=== PATIENT | female | born 1960 | race African-American/Black ===

== ENCOUNTER 2018-04-27 14:06 | Inpatient (IN) | payer MEDICAID ==
[~2018-04-27] VITALS: Ht 170.2 cm; Wt 115.7 kg
[2018-04-27] MEDS ORDERED: KETOROLAC 30MG/ML VIAL IV STA (14:21)
[2018-04-27] MEDS ORDERED: SODIUM CHLORIDE 0.9% 1,000 ML IV ONE (14:21)
[2018-04-27] MEDS ORDERED: METHYLPREDNISOLONE SOD SUCC 125 MG/2 ML VIAL IV ONE (14:30)
[2018-04-27] MEDS ORDERED: CLINDAMYCIN 600 MG in DEXTROSE 5% WATER 50 ML IV ONE (14:30)
[2018-04-27 15:22] LABS: CHLORIDE 107 mEq/L (98-107)
[2018-04-27 17:15] LABS: HEMATOCRIT. 39.5 % (36.0-48.0); HEMOGLOBIN. 13.2 g/dL (12.0-16.0); MEAN CORPUSCULAR HEMOGLOBIN 29.6 pg (28.0-32.0); MEAN CORPUSCULAR VOLUME 88.6 fL (81.0-99.0); MEAN PLATELET VOLUME 9.6 fl (7.4-10.4); PLATELET 249 x1000/uL (130-400); RED BLOOD CELL COUNT 4.46 mill/uL (4.2-5.4); RED CELL DISTRIBUTION WIDTH 13.5 % (11.6-14.6)
[2018-04-27] MEDS ORDERED: FUROSEMIDE 20MG/2ML VIAL IVP ONE (18:00)
[2018-04-27] MEDS ORDERED: IPRATROPIUM/ALBUTEROL 0.5-3(2.5)MG/3ML NEB HHN PRN (18:45)
[2018-04-27] MEDS ORDERED: LACTULOSE 20G/30ML UDC PO PRN (18:45)
[2018-04-27 19:35] LABS: PLATELET ESTIMATE NORMAL
[2018-04-27 20:15] VITALS: BP 161/61
[2018-04-27 20:30] VITALS: BP 161/61
[2018-04-27] MEDS: GUAIFENESIN 600MG ER TABLET PO SCH (21:42)
[2018-04-27] MEDS: AMLODIPINE 5MG TABLET PO SCH (21:42)
[2018-04-27] MEDS: ENOXAPARIN 30MG/0.3ML SYR SUBCUT SCH (21:43)
[2018-04-27] MEDS ORDERED: OMEP20TA15 PO (23:40)
[2018-04-27] MEDS ORDERED: ALBU18HF2 IH (23:41)
[2018-04-28] VITALS (8 sets, daily range): BP systolic 105–159; BP diastolic 36–67
[2018-04-28] MEDS ORDERED: HYDROCODONE/ACETAMINOPHEN 5/325MG TABLET PO PRN (01:00)
[2018-04-28] MEDS: CLINDAMYCIN 900 MG in DEXTROSE 5% WATER 50 ML IV SCH ×3 (01:36→18:07)
[2018-04-28] MEDS: OMEPRAZOLE 20MG CAPSULE EXTENDED RELEASE PO SCH (06:24)
[2018-04-28 06:32] LABS: BASOPHILS % 0.3 % (0.0-2.0); HEMATOCRIT. 38.2 % (36.0-48.0); HEMOGLOBIN. 12.7 g/dL (12.0-16.0); LYMPHOCYTES % 9.3 % (20.0-50.0); MEAN CORPUSCULAR HEMOGLOBIN 29.7 pg (28.0-32.0); MEAN CORPUSCULAR VOLUME 89.3 fL (81.0-99.0); MEAN PLATELET VOLUME 9.8 fl (7.4-10.4); MONOCYTES % 3.2 % (2.0-8.0); NEUTROPHILS % 87.2 % (40.0-76.0); PLATELET 266 x1000/uL (130-400); RED BLOOD CELL COUNT 4.28 mill/uL (4.2-5.4); RED CELL DISTRIBUTION WIDTH 13.5 % (11.6-14.6)
[2018-04-28 07:08] LABS: CHLORIDE 105 mEq/L (98-107)
[2018-04-28] MEDS ORDERED: FUROSEMIDE 40MG/4ML VIAL IVP SCH (09:00)
[2018-04-28] MEDS: DOCUSATE SODIUM 250MG CAPSULE PO SCH (09:17)
[2018-04-28] MEDS: ENOXAPARIN 30MG/0.3ML SYR SUBCUT SCH ×2 (09:17→20:30)
[2018-04-28] MEDS: GUAIFENESIN 600MG ER TABLET PO SCH ×2 (09:17→20:29)
[2018-04-28] MEDS: AMLODIPINE 5MG TABLET PO SCH ×2 (09:17→20:30)
[2018-04-28] MEDS: GUAIFENESIN-DM 200MG-20MG/10ML UDC PO PRN ×2 (16:41→23:11)
[2018-04-29] VITALS: BP 103/82
[2018-04-29] MEDS: CLINDAMYCIN 900 MG in DEXTROSE 5% WATER 50 ML IV SCH ×2 (00:58→09:53)
[2018-04-29 04:00] VITALS: BP 158/58
[2018-04-29] MEDS: OMEPRAZOLE 20MG CAPSULE EXTENDED RELEASE PO SCH (06:02)
[2018-04-29 06:59] LABS: BASOPHILS % 0.8 % (0.0-2.0); EOSINOPHILS % 2.7 % (0.0-5.0); HEMATOCRIT. 37.7 % (36.0-48.0); HEMOGLOBIN. 12.6 g/dL (12.0-16.0); LYMPHOCYTES % 34.3 % (20.0-50.0); MEAN CORPUSCULAR HEMOGLOBIN 29.8 pg (28.0-32.0); MEAN CORPUSCULAR VOLUME 89.2 fL (81.0-99.0); MEAN PLATELET VOLUME 9.6 fl (7.4-10.4); MONOCYTES % 7.8 % (2.0-8.0); NEUTROPHILS % 54.4 % (40.0-76.0); PLATELET 270 x1000/uL (130-400); RED BLOOD CELL COUNT 4.23 mill/uL (4.2-5.4); RED CELL DISTRIBUTION WIDTH 13.3 % (11.6-14.6)
[2018-04-29 08:00] VITALS: BP 134/66
[2018-04-29] MEDS: DOCUSATE SODIUM 250MG CAPSULE PO SCH (09:53)
[2018-04-29] MEDS: AMLODIPINE 5MG TABLET PO SCH (09:53)
[2018-04-29] MEDS: ENOXAPARIN 30MG/0.3ML SYR SUBCUT SCH (09:53)
[2018-04-29] MEDS: GUAIFENESIN 600MG ER TABLET PO SCH (09:53)
[2018-04-29] MEDS ORDERED: FUROSEMIDE 40MG/4ML VIAL IVP NR (10:00)
[2018-04-29] MEDS: GUAIFENESIN-DM 200MG-20MG/10ML UDC PO PRN (11:06)
[2018-04-29 12:00] VITALS: BP 124/59
[2018-04-29] MEDS ORDERED: DOCU250C14 PO (13:21)
[2018-04-29] MEDS ORDERED: AMLO5TAB88 PO (13:21)
[2018-04-29] MEDS ORDERED: TUSSL PO (13:21)
[2018-04-29] MEDS ORDERED: FURO20TA4 PO (13:21)
[2018-04-29] MEDS ORDERED: CEPH750C9 MT (13:22)
[2018-04-29 13:40] VITALS: BP 124/59
[2018-04-29] MEDS ORDERED: CEFTRIAXONE 1 G PREMIX 50 ML IV SCH (14:30)
[2018-04-30] MEDS ORDERED: FUROSEMIDE 20MG TABLET PO SCH (09:00)
== END 2018-04-29 14:15 | disposition home or self-care (01) | DRG 720 ==
LOC: ER 14:34 → 5WST 17:54 → ENRESERV 19:12
PROVIDERS: ADMIT Internal Medicine; ATTEND Internal Medicine
DX: A41.9 Sepsis, unspecified organism (principal); I50.31 Acute diastolic (congestive) heart failure; E66.01 Morbid (severe) obesity due to excess calories; E83.51 Hypocalcemia; K21.9 Gastro-esophageal reflux disease without esophagitis; J44.9 Chronic obstructive pulmonary disease, unspecified; J03.91 Acute recurrent tonsillitis, unspecified; R00.2 Palpitations; R73.03 Prediabetes; F17.200 Nicotine dependence, unspecified, uncomplicated; K59.00 Constipation, unspecified; Z96.659 Presence of unspecified artificial knee joint; R10.9 Unspecified abdominal pain; Z71.3 Dietary counseling and surveillance; Z88.0 Allergy status to penicillin; Z91.010 Allergy to peanuts; Z68.39 Body mass index [BMI] 39.0-39.9, adult
CPT/HCPCS: 36415; 70490; 71045; 80048; 83036; 83880; 84145; 84484; 87070; 93005; 93306; 99285; J0696; J1650; J1885; J1940; J2930; J3490; J7030; J7050; J7060; J7620

== ENCOUNTER 2018-11-29 14:18 | Emergency (ER) | payer MEDICAID ==
[~2018-11-29] VITALS: Ht 170.2 cm; Wt 113.0 kg
[~2018-11-29 14:18] MED LIST: ALBU18HF2 IH; AMLO5TAB88 PO; CEPH750C9 MT; DOCU250C14 PO; FURO20TA4 PO; OMEP20TA15 PO; TUSSL PO
[2018-11-29] MEDS ORDERED: KETOROLAC 30MG/ML VIAL IM ONE (17:00)
[2018-11-29] MEDS ORDERED: HYDROCODONE/ACETAMINOPHEN 5/325MG TABLET PO ONE (19:00)
[2018-11-29 20:05] VITALS: BP 150/60
== END 2018-11-29 20:07 | disposition home or self-care (01) ==
LOC: ER 14:18
DX: M25.512 Pain in left shoulder (principal); K21.9 Gastro-esophageal reflux disease without esophagitis; J45.909 Unspecified asthma, uncomplicated; F17.210 Nicotine dependence, cigarettes, uncomplicated; Z98.890 Other specified postprocedural states; Z96.659 Presence of unspecified artificial knee joint; Z88.0 Allergy status to penicillin; Z88.3 Allergy status to other anti-infective agents; Z91.010 Allergy to peanuts
CPT/HCPCS: 73030; 96372; 99283; J1885

== ENCOUNTER 2019-01-10 19:20 | Emergency (ER) | payer MEDICAID ==
[~2019-01-10] VITALS: Ht 170.2 cm; Wt 113.0 kg
[2019-01-10 20:19] VITALS: BP 164/73
[2019-01-10] MEDS ORDERED: ACETAMINOPHEN 325MG TABLET PO ONE (21:15)
== END 2019-01-10 21:36 | disposition home or self-care (01) ==
LOC: ER 19:20
DX: S80.862A Insect bite (nonvenomous), left lower leg, initial encounter (principal); S80.861A Insect bite (nonvenomous), right lower leg, initial encounter; I10 Essential (primary) hypertension; K21.9 Gastro-esophageal reflux disease without esophagitis; J45.909 Unspecified asthma, uncomplicated; F17.210 Nicotine dependence, cigarettes, uncomplicated; Z98.890 Other specified postprocedural states; Z88.0 Allergy status to penicillin; Z88.3 Allergy status to other anti-infective agents; Z91.010 Allergy to peanuts; W57.XXXA Bitten or stung by nonvenomous insect and other nonvenomous arthropods, initial encounter; Y93.89 Activity, other specified; Y92.018 Other place in single-family (private) house as the place of occurrence of the external cause
CPT/HCPCS: 99282

== ENCOUNTER 2025-04-24 22:10 | Emergency (ER) | payer MEDICARE, MEDICAID ==
[~2025-04-24] VITALS: Ht 177.8 cm; Wt 111.0 kg
[2025-04-24 22:17] VITALS: O2SAT 97
[2025-04-24] MEDS: LOSARTAN 50 MG TABLET PO ONE (23:26)
[2025-04-25] LABS: BASOPHILS % 0.5 % (0.0-2.0); EOSINOPHILS % 0.0 % (0.0-5.0); HEMATOCRIT. 39.1 % (36.0-48.0); HEMOGLOBIN. 12.8 g/dL (12.0-16.0); LYMPHOCYTES % 9.4 % (20.0-50.0); MEAN PLATELET VOLUME 10.2 fl (7.4-10.4); MONOCYTES % 5.1 % (2.0-8.0); NEUTROPHILS % 85.0 % (40.0-76.0); PLATELET 260 x1000/uL (130-400); RED BLOOD CELL COUNT 4.30 mill/uL (4.2-5.4); RED CELL DISTRIBUTION WIDTH 13.8 % (11.6-14.6)
[2025-04-25 00:13] LABS: CREATININE 1.2 mg/dL (0.6-1.0); UREA NITROGEN BLOOD 15.0 mg/dL (9-23)
[2025-04-25] MEDS: METFORMIN HCL 850MG TABLET PO NR (01:45)
[2025-04-25] MEDS: HYDRALAZINE 20MG/ML VIAL IV NR (02:45)
[2025-04-25] MEDS ORDERED: LOSA50TA41 MT (04:36)
[2025-04-25] MEDS ORDERED: METF-416 MT (04:36)
[2025-04-25 04:56] VITALS: BP 167/68; PULSE 66; RESP 22; TEMP 36.6; O2SAT 97
== END 2025-04-25 05:27 | disposition home or self-care (01) ==
LOC: ER 22:10
DX: I11.0 Hypertensive heart disease with heart failure (principal); I50.9 Heart failure, unspecified; E11.65 Type 2 diabetes mellitus with hyperglycemia; F17.200 Nicotine dependence, unspecified, uncomplicated; J45.909 Unspecified asthma, uncomplicated; Z79.899 Other long term (current) drug therapy; Z79.84 Long term (current) use of oral hypoglycemic drugs; Z98.890 Other specified postprocedural states; Z91.010 Allergy to peanuts; Z88.1 Allergy status to other antibiotic agents; Z88.0 Allergy status to penicillin
CPT/HCPCS: 36415; 80048; 82962; 85025; 93005; 99285